=== PATIENT | male | born 1965 | race Caucasian/White ===

== ENCOUNTER → 2018-08-25 | Outpatient (CLI) | payer MEDICARE ==
--- NOTE | 2018-08-27 13:54 | ECHO ---
DATE OF PROCEDURE: 08/25/2018 REFERRING PHYSICIAN: Dr. Gelacio Lobato INDICATION: Dyspnea. HEIGHT: 67 inches. WEIGHT: 222 pounds. 2D MEASUREMENTS: Aortic annulus: 2.0 cm Aortic root: 3.2 cm Left atrium: 3.7 cm Left ventricle diastole: 4.4 cm Ventricular septum: 1.13 cm Left ventricle diastole: 1.09 cm Inferior vena cava: 1.3 cm DOPPLER MEASUREMENTS: Aortic valve velocity: 128 cm/s LVOT velocity: 82.4 cm/s LVOT VTI: 17.4 cm Very mild mitral regurgitation. Mitral E velocity: 81.0 cm/s Mitral A velocity: 62.2 cm/s Mitral deceleration time: 194 ms Very mild tricuspid regurgitation. Estimated right ventricle systolic pressure: 30-35 mmHg assuming an atrial pressure of 5-10 mmHg. Mild pulmonic regurgitation. Pulmonary artery systolic pressure: 49 mmHg. MITRAL ANNULAR TISSUE DOPPLER: E prime septal: 5.8 cm/s E prime lateral: 9.4 cm/s DESCRIPTION: Rhythm was sinus. Image quality was adequate. This was a 2D, M-mode, color flow Doppler and pulse wave Doppler examination and included mitral annular tissue Doppler. CONCLUSIONS: 1. Suggestive of moderate elevation of pulmonary artery systolic pressure. Normal right ventricle size with mild right ventricle hypertrophy. Normal right ventricle systolic function. 2. Normal left ventricle internal dimensions and wall thickness. Normal regional left ventricular (LV) wall motion and wall thickening. Normal LV systolic function. Normal LV diastolic function. Left ventricular ejection fraction (LVEF) 60% by visual estimate. 3. Otherwise normal appearing echocardiogram Doppler findings.
== END ==
LOC: M CARPUL 08:02
PROVIDERS: ATTEND Internal Medicine Pulmonary Disease
DX: R06.00 Dyspnea, unspecified (principal)

== ENCOUNTER → 2019-12-13 | Outpatient (CLI) | payer MEDICARE ==
--- NOTE | 2019-12-26 12:58 | REP ---
CT CHEST WITHOUT CONTRAST: Low dose screening exam. HISTORY: Nicotine dependence. No comparison chest imaging. 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 There is no evidence of pulmonary parenchymal mass or infiltrate. No pleural effusion is appreciated. There is a single 5mm noncalcified pulmonary nodule in the right upper lobe displayed on page 22 of 108 in the series 201. This does No tenderness over the maxillary or frontal sinuses. Appear to be calcified. No other pulmonary nodule is appreciated. Lung pimentel are otherwise clear. Exam is otherwise unremarkable. IMPRESSION: Lung RADS category 2. Findings 5mm nodule right upper lobe. By [employer] criteria, repeat chest CT study indicated in 12 months. MTDD
== END ==
LOC: M RAD 10:40
PROVIDERS: ATTEND Internal Medicine Pulmonary Disease
DX: Z12.2 Encounter for screening for malignant neoplasm of respiratory organs (principal); F17.218 Nicotine dependence, cigarettes, with other nicotine-induced disorders; R91.1 Solitary pulmonary nodule

== ENCOUNTER → 2021-01-05 | Outpatient (CLI) | payer MEDICARE ==
--- NOTE | 2021-01-05 12:46 | REP ---
INDICATION: COPD COMPARISON: 12/13/2019 TECHNIQUE: Axial noncontrast images from the thoracic inlet to the upper abdomen using low-dose lung screening technique (LDCT). FINDINGS: Bilateral lung pimentel are well aerated, symmetric and clear. No consolidation, suspicious nodule or mass. Small 5 mm suspected scar in the anterior right upper lobe is unchanged from prior examination. No effusion. No pneumothorax. Tracheobronchial tree is patent. IMPRESSION: Lung-RADS category 2. Stable small 5 mm suspected scar in the right upper lobe. Management recommendations include annual low-dose CT surveillance for high risk patients. <Electronically signed by [place] > 01/05/21 [id number]
== END ==
LOC: M RAD 11:27
PROVIDERS: ATTEND Internal Medicine Pulmonary Disease
DX: Z12.2 Encounter for screening for malignant neoplasm of respiratory organs (principal); F17.210 Nicotine dependence, cigarettes, uncomplicated; J44.9 Chronic obstructive pulmonary disease, unspecified

== ENCOUNTER → 2022-01-19 | Outpatient (CLI) | payer MEDICARE | LOC: M RAD 09:29 | PROVIDERS: ATTEND Internal Medicine Pulmonary Disease | DX: Z12.2 Encounter for screening for malignant neoplasm of respiratory organs (principal); F17.218 Nicotine dependence, cigarettes, with other nicotine-induced disorders; R91.8 Other nonspecific abnormal finding of lung field ==

== ENCOUNTER → 2022-09-10 | Outpatient (CLI) | payer MEDICARE | LOC: M RAD 07:56 | PROVIDERS: ATTEND Internal Medicine Pulmonary Disease | DX: R91.1 Solitary pulmonary nodule (principal) ==

== ENCOUNTER → 2023-10-10 | Outpatient (CLI) | payer MEDICARE | LOC: M RAD 09:44 | PROVIDERS: ATTEND Internal Medicine Pulmonary Disease | DX: Z12.2 Encounter for screening for malignant neoplasm of respiratory organs (principal); F17.218 Nicotine dependence, cigarettes, with other nicotine-induced disorders; R91.1 Solitary pulmonary nodule ==

== ENCOUNTER → 2024-04-27 | Outpatient (CLI) | payer MEDICARE | LOC: M RAD 11:28 | PROVIDERS: ATTEND Internal Medicine Pulmonary Disease | DX: J45.20 Mild intermittent asthma, uncomplicated (principal) ==

== ENCOUNTER → 2024-11-27 | Outpatient (CLI) | payer MEDICARE | LOC: M RAD 09:34 | PROVIDERS: ATTEND Internal Medicine Pulmonary Disease | DX: Z12.2 Encounter for screening for malignant neoplasm of respiratory organs (principal); F17.218 Nicotine dependence, cigarettes, with other nicotine-induced disorders; R91.1 Solitary pulmonary nodule; I25.10 Atherosclerotic heart disease of native coronary artery without angina pectoris ==